=== PATIENT | female | born 1985 | race Caucasian/White ===

== ENCOUNTER 2016-08-19 04:29 | Emergency (ER) | payer BC ==
--- NOTE | ~2016-08-19 | CT3 ---
[facility] A Service of [facility] RADIOLOGY TEXT RESULTS PATIENT: MICHAEL RIZVI LOCATION: SED : [birth year] UNIT #: [id number] AGE: [address]: Kervin Jefferson MD SEX: F ORDER DR: [id number] [address] [address] [id number] E MR#: [id number] #: [id number] NAME: MICHAEL RIZVI : 1985 SEX: F STUDY DATE/TIME: 08/19/2016 8:22 UNIT: SED ROOM: STUDY DESCRIPTION: CT Abd and Pelv WWo Cont Attending Physician: Kervin Jefferson M.D. Ordering Physician: Kalin Maurice M.D. MEDICAL IMAGING REPORT This report is preliminary unless electronic signature is present. EXAM CT of the abdomen and pelvis without and with contrast media. HISTORY Possible caval thrombus on recent chest CT. Chest pain with inspiration since 0300 this morning. Question raised of caval thrombus on recent chest CT for pulmonary embolism. TECHNIQUE Axial imaging of the abdomen was initially performed without contrast media. This CT exam was performed with one or more of the following radiation dose reduction techniques: automatic exposure control, adjustment of mA and/or kV according to patient size, and iterative reconstruction. FINDINGS There is contrast from the patient's prior PE study. There is no filling defects in the collecting system of the kidney. Liver appears unremarkable. Gallbladder is normal and spleen is normal. Patient was then imaged in the arterial and venous phases. Arterial phase imaging is normal. Portal venous system is widely patent. The hepatic veins are widely patent. Note is made of a hypodense lesion in the caudate lobe measuring 1 cm in diameter, likely a benign cyst. There is a second lesion in the peripheral aspect of segment 4 measuring 11 mm in diameter. A third lesion is seen in segment 5 of the liver measuring 5 mm in diameter. Remainder of the upper abdomen is normal. Postcontrast imaging of the kidneys is normal. Appendix is normal. Scans through the pelvis show an incidental right ovarian cyst measuring 3.3 cm. No significant fluid collections are identified. Uterus appears unremarkable. There are no adnexal masses. Delayed imaging does shows some late enhancement of the liver lesions. These remain of low density. [facility] A Service of [facility] RADIOLOGY TEXT RESULTS PATIENT: MICHAEL RIZVI LOCATION: SED : [birth year] UNIT #: [id number] AGE: [address]: Kervin Jefferson MD SEX: F ORDER DR: They could represent atypical hemangiomas. An incidental cyst is seen in the central portion of the right kidney. There is no evidence of caval thrombus. The vena cava is normal and the hepatic veins are normal. CONCLUSIONS 1. 3 hypodense lesions that appear benign within the liver, the largest measuring up to about 11 mm. I suspect these represent either cysts or represent but atypical hemangiomas. 2. Incidental 3.3 cm right ovarian cyst. 3. No evidence of caval or hepatic vein thrombus. Dictated by... Ranulfo Wheeler M.D. THIS IS AN ELECTRONICALLY VERIFIED REPORT Ranulfo Wheeler M.D. at 08/19/2016 4:52 PM SIMEON/tara TD: 08/19/2016 09:32 JOB #: [id number] MEDICAL IMAGING REPORT Page 1 of 1
--- NOTE | ~2016-08-19 | CT16 ---
[facility] A Service of [facility] & [facility] RADIOLOGY TEXT RESULTS PATIENT: MCIHAEL RIZVI LOCATION: SED : 86 UNIT #: [id number] AGE: [address]: Kervin Jefferson MD SEX: F ORDER DR: [id number] [place] [id number] E MR#: [id number] Acc #: [id number] NAME: MICHAEL RIZVI : 1985 SEX: F STUDY DATE/TIME: 08/19/2016 6:11 UNIT: SED ROOM: STUDY DESCRIPTION: CT Angio Chest for PE Attending Physician: Kervin Jefferson M.D. Ordering Physician: Kervin Jefferson M.D. MEDICAL IMAGING REPORT This report is preliminary unless electronic signature is present. EXAM CT angiogram of the chest HISTORY Elevated D-dimer, acute pain left side of chest started about 3 o'clock this morning. Pain in right shoulder. Hurts with inspiration. TECHNIQUE This CT examination was performed with one or more of the following radiation dose reduction techniques: automatic exposure control, adjustment of mA and/or kV according to patient size, and iterative reconstruction. COMMENT CT angiography performed chest during the intravenous administration of 100 mL of Isovue-370. Imaging acquired in the axial plane followed by 3-D coronal MIP reconstructed imaging for the purpose of CT pulmonary angiography. There is no evidence for pulmonary embolus. There is no thoracic aortic dissection. No pericardial or pleural effusion. There is an abnormal appearance to the inferior vena cava in the upper liver to the level of the right atrium. It appears to be enlarged and there is a peripheral faint rim like enhancement around an area of lower attenuation centrally. The findings together are worrisome for thrombus within the vessel. I suspect some enlargement also of the hepatic veins. I have spoken to Dr. Jefferson in the emergency room and recommended that this patient be evaluated with a triple phase liver study to further characterize the abnormality. Please correlate as well for history of hypercoagulable state or control pill use. I have indicated to him that the evaluation should occur at this time since this diagnosis would result in admission. A few emphysematous changes noted at apices. No pneumothorax. No focal infiltrate. No congestive failure. No hilar, mediastinal or STS. [facility] A Service of [facility] & [facility] RADIOLOGY TEXT RESULTS PATIENT: MICHAEL RIZVI LOCATION: SED : 86 UNIT #: [id number] AGE: [address]: Kervin Jefferson MD SEX: F ORDER DR: axillary lymphadenopathy. IMPRESSION 1. Findings raise concern for thrombus within the inferior vena cava intrahepatic portion extending to the level of the right atrium. The diagnosis is not confidently made on the study but should be pursued at this time. I would recommend that this patient undergo a triple phase CT of the liver to better evaluate the status of the vessels. In the meantime, please correlate for clinical evidence of hypercoagulable state or control pill use. I have discussed the case with Dr. Jefferson during this dictation and indicated that the diagnosis of thrombus within the inferior vena cava should be pursued at this time. 2. There is no evidence for pulmonary embolism, thoracic aortic dissection, pleural or pericardial effusion. There is no pneumothorax. There are a few emphysematous changes at the apices. STAT * RESULT Dictated by... Page Em M.D. THIS IS AN ELECTRONICALLY VERIFIED REPORT Page Em M.D. at 08/19/2016 8:33 AM JOESPH/ranjith TD: 08/19/2016 06:42 JOB #: [id number] MEDICAL IMAGING REPORT Page 1 of 1
--- NOTE | ~2016-08-19 | CR63 ---
[facility] A Service of [facility] & [facility] RADIOLOGY TEXT RESULTS PATIENT: MICHAEL RIZVI LOCATION: SED : [birth year] UNIT #: [id number] AGE: [address]: Kervin Jefferson MD SEX: F ORDER DR: [id number] [place] [id number] E MR#: [id number] Acc #: [id number] NAME: MICHAEL RIZVI : 1985 SEX: F STUDY DATE/TIME: 08/19/2016 4:48 UNIT: SED ROOM: STUDY DESCRIPTION: CR Chest 2 View Attending Physician: Kervin Jefferson M.D. Ordering Physician: Kervin Jefferson M.D. MEDICAL IMAGING REPORT This report is preliminary unless electronic signature is present. EXAM Chest x-ray, 08/19/2016 HISTORY 30-year-old female in the ED complaining of left-side inspiratory chest pain beginning tonight prior to arrival. TECHNIQUE PA and lateral upright chest series. FINDINGS The lungs are expanded and clear. No visible pulmonary infiltrate, pneumothorax or pleural effusion. Heart size and pulmonary vascularity are within normal limits. IMPRESSION Negative chest. Dictated by... Leonel Brown M.D. THIS IS AN ELECTRONICALLY VERIFIED REPORT Leonel Brown M.D. at 08/19/2016 5:58 AM JEWELS/mekhi TD: 08/19/2016 05:24 JOB #: [id number] MEDICAL IMAGING REPORT Page 1 of 1
[~2016-08-19 04:29] MED LIST: NO MEDICATIONS
[2016-08-19 05:44] LABS: GLOM FILT RATE Estimated 76.1 mL/min (>60)
== END 2016-08-19 09:11 | disposition home or self-care (01) ==
LOC: SED 04:29
PROVIDERS: Emergency Medicine
DX: R09.1 Pleurisy (principal); F17.210 Nicotine dependence, cigarettes, uncomplicated
CPT/HCPCS: 71020; 71275; 74178; 82565; 84520; 84703; 85379; 99284; Q9967